=== PATIENT | male | born 1980 | race Caucasian/White ===

== ENCOUNTER 2024-09-11 08:27 | Emergency (ER) | payer BC, SELFPAY ==
[2024-09-11 08:28] VITALS: BP 165/95
--- NOTE | 2024-09-11 08:46 | ED.GENMED ---
History of Present Illness
General
Chief Complaint: Abdominal Pain
Time Seen by Provider: 09/11/24 08:32
History of Present Illness
History of Present Illness:
Patient is a 43-year-old male with no reported chronic medical problems here today for evaluation of approximately 3 days of left lateral side pain. At times, pain radiates along the left side of his abdomen. No back pain. Pain is mild described
as a 3 out of 10 in severity. Last week, he had mild fever associated with cough/congestion but this lasted 1 to 2 days and has since resolved. No fevers currently. No vomiting or diarrhea. No prior abdominal surgeries. No other acute symptoms.
Past History
Past History
ED Past Medical History: Psychiatric (Anxiety. Takes Celexa)
Social History
Tobacco: Non-smoker
Personal: Single
Employment: Employed
Review of Systems
Review of Systems
All Other Systems: ROS reviewed and negative except as documented in HPI and ROS
Phy Exam
Physical Exam
Physical Exam:
GENERAL: Alert , in no apparent distress
NECK: Supple
ABDOMEN: Soft, without focal tenderness, no r/g, no cvat
NEUROLOGICAL: Alert and oriented, no focal neuro deficits
SKIN: Warm and dry, skin intact.
MUSCULOSKELETAL: No edema, well perfused.
PSYCH: Normal and appropriate interaction.
Course
Orders/Labs/Results
Orders:
Orders
09/11/24 08:48
CT Abd/pelvis W Iv Cont Urgent
Comment:
Reason For Exam: left side pain
09/11/24 09:12
Comprehensive Metabolic Panel Urgent
09/11/24 09:13
Complete Blood Count/With Diff Urgent
09/11/24 10:37
Urinalysis Reflex To Culture Urgent
Date Specimen was Collected: 09/11/24
Time Specimen was Collected: 10:17
Urine Culture Urgent
MURRAY Source: U
Specimen Description:
Date Specimen was Collected: 09/11/24
Time Specimen was Collected: 10:17
09/11/24 10:47
0.9% Sodium Chloride 1000 ml [Nss] 1,000 ml IV BOLUS
09/11/24 11:44
CefTRIAXone [Rocephin] 1,000 mg IV NOW STA
09/11/24 11:47
Add On - Microbiology Stat
Tests Added?: urine culture
09/11/24 12:01
Sterile Water [Sterile Water For Injection] 10 ml .ROUTE .STK-MED ONE
Abnormal Lab Results
09/11/24 09/11/24
09:12 09:13
RBC 4.46 L 10^6/uL
(4.70-6.10)
MCH 31.4 H pg
(27.0-31.0)
Abs Immat Gran (auto) 0.1 H 10^3/uL
(0-0.05)
Absolute Monos (auto) 0.7 H 10^3/uL
(0.1-0.6)
Immature Gran % 0.6 H %
(0-0.5)
Glucose 107 H mg/dl
(70-99)
Total Protein 6.2 L g/dl
(6.3-8.2)
09/11/24 09:13
09/11/24 09:12
Vital Signs
Initial and Last Documented VS:
Initial Vital Signs
Temp Pulse Resp BP Pulse Ox
98.1 F 69 16 165/95 99
09/11/24 08:28 09/11/24 08:28 09/11/24 08:28 09/11/24 08:28 09/11/24 08:28
Last Documented Vital Signs
Temp Pulse Resp BP Pulse Ox
98.1 F 69 16 165/95 99
09/11/24 08:28 09/11/24 08:28 09/11/24 08:28 09/11/24 08:28 09/11/24 08:28
MDM/Problems Addressed
Differential Diagnosis Includes:
Patient is a 43-year-old male with no reported chronic medical problems here today for evaluation of approximately 3 days of left lateral side pain. Overall, patient well-appearing. Vitals remarkable for an elevated blood pressure. Physical
examination described above. Given symptoms/findings, will begin with screening labs, urinalysis, and a CT scan of the abdomen and pelvis with IV contrast.
09/11/2024 13:32: CT scan reveals findings that are highly suspicious for focal pyelonephritis of the left kidney. No discrete abscess. There is also a small right middle lobe pulmonary nodule. CT kidney findings less likely differential include
renal lymphoma or infarct. Case was discussed with the radiologist, Dr. London, who feels an ultrasound would not provide additional information at this time and feels patient can follow-up as an outpatient with urology. Urinalysis was obtained
which is negative. Screening labs grossly negative for infection. Will send urine for culture. Will treat empirically for pyelonephritis with ceftriaxone x 1 IV as well as discharge with p.o. cefpodoxime. Recommend supportive measures and close
follow-up with urology. Patient also made aware of the incidental pulmonary nodule and recommended follow-up with primary care doctor for repeat imaging as the patient does smoke tobacco. All questions answered. Stable for discharge.
*Critical Care Note
Total Time (30-74mins, 75-104mins- exclusive of procedures): Not Applicable
ED Attending Note
-
Portions of this chart may have been created with voice recognition software.� Occasional wrong word or��sound alike� substitutions may have occurred due to the inherent limitations of voice recognition software.
Discharge Plan
Departure
Patient Disposition: Home (Routine Discharge)
Date of Disposition: 09/11/24
Time of Disposition: 13:34
Patient with high blood pressure during this ER visit?: Yes
Condition: Good
Covid-19: Not Applicable
Discharge Problem:
Pyelonephritis of left kidney, Acute left flank pain, Incidental lung nodule
Instructions: Urinary tract infections in adults
Prescriptions:
New
cefpodoxime 200 mg tablet
200 mg PO Q12H 10 Days Qty: 20 0RF
Referrals:
Amor Wang DO [Family Provider] -
Hector Swift MD [Active] - Follow up in 1 week
Activity Restrictions/Additional Instructions:
Your CAT scan reveals evidence of a possible kidney infection. Begin the oral antibiotics as directed. Follow-up with urology within 7 to 10 days for close reevaluation. Return for any new, worsening, or concerning symptoms.
Interventions
Interventions:
*Risk Screen - Suicide Last Done: 09/11/24 08:30
*General Assessment Last Done: 09/11/24 09:15
*Neglect/Abuse Screening Last Done: 09/11/24 08:30
*ED COVID-19 Vaccine History Last Done: 09/11/24 09:15
DL-Nvokwz-Ifxrbvaubh Assessment Last Done: 09/11/24 09:20
Discharge Date and Time
Print Language: CHILEAN
[2024-09-11 09:18] VITALS: BMI 30.8
[2024-09-11 09:31] LABS: % Basophils 0.2 % (0-2); % Eosinophils 5.6 % (0-6); % Immature Granulocytes 0.6 % (0-0.5); % Lymphocytes 24.9 % (20.5-51.1); % Monocytes 8.5 % (1.7-9.3); % Neutrophils 60.2 % (42.2-75.2); Absolute Eosinophils 0.5 10^3/uL (0-0.7); Absolute Immature Granulocytes 0.1 10^3/uL (0-0.05); Absolute Lymphocytes 2.1 10^3/uL (1.2-3.4); Absolute Monocytes 0.7 10^3/uL (0.1-0.6); Absolute Neutrophils 5.1 10^3/uL (1.4-6.5); Hematocrit 40.8 % (39.0-52.0); Mean Corp Hgb Conc. 34.3 g/dL (33.0-37.0); Mean Corpuscular Hgb 31.4 pg (27.0-31.0); Mean Corpuscular Volume 91.5 fL (80.0-94.0); Nucleated Red Blood Cells % 0 % (-); Platelet Count 238 10^3/uL (130-400); Red Blood Cell Count 4.46 10^6/uL (4.70-6.10); Red Cell Dist. Width 12.9 % (11.5-14.5); White Blood Cell Count 8.4 10^3/uL (4.8-10.8)
[2024-09-11 09:47] LABS: ALT (SGPT) 27 U/L (0-50); AST (SGOT) 26 U/L (17-59); Albumin 3.7 g/dl (3.5-5.0); Alkaline Phosphatase 82 U/L (38-126); Blood Urea Nitrogen 18 mg/dl (9-20); Carbon Dioxide 30 mmol/L (22-30); Chloride 103 mmol/L (98-107); Estimated Creatinine Clearance > 125 ml/min; Glucose 107 mg/dl (70-99); Sodium 138 mmol/L (135-145); Total Bilirubin 0.6 mg/dl (0.2-1.3); Total Protein 6.2 g/dl (6.3-8.2); eGFR > 60.00
[2024-09-11] MEDS: NSS 1000 IV (11:03)
[2024-09-11 11:10] LABS: Urine Albumin Negative (Neg - Trace); Urine Bilirubin Negative (Negative); Urine Character Clear (Clear); Urine Color Yellow; Urine Glucose Negative (Negative); Urine Ketone Negative (Negative); Urine Leukocyte Negative (Negative); Urine Nitrite Negative (Negative); Urine Occult Blood Negative (Negative); Urine Urobilinogen Negative (Neg - 1+)
[2024-09-11] MEDS: ROCEPHIN 1000 MG IV (12:03)
== END 2024-09-11 14:23 | disposition home or self-care (01) ==
LOC: EMR 08:27
PROVIDERS: Physician Assistant; EMERGENCY PHYSICIAN Emergency Medicine; FAMILY PHYSICIAN Family Medicine
DX: N12 Tubulo-interstitial nephritis, not specified as acute or chronic (principal); R91.1 Solitary pulmonary nodule; R03.0 Elevated blood-pressure reading, without diagnosis of hypertension
CPT/HCPCS: 99285; 96374; 96361; 74177; 80053; 81003; 85025; 87086; Q9967

== ENCOUNTER 2024-09-23 09:53 | Emergency (ER) | payer BC, SELFPAY ==
[2024-09-23 09:54] VITALS: BP 144/86
--- NOTE | 2024-09-23 10:26 | ED.GENMED ---
History of Present Illness
General
Chief Complaint: Head Injury
Source: patient and spouse
Exam Limitations: none
Time Seen by Provider: 09/23/24 10:22
History of Present Illness
History of Present Illness:
Patient pulled back by his dog. Hit the back of his head. Brief LOC. Sat up and then passed out briefly again. Complaining of headache and posterior neck pain. No nausea or vomiting no photophobia no numbness tingling or weakness or other
neurologic symptoms. No bleeding.
Past History
Past History
ED Past Medical History: Psychiatric (Anxiety. Takes Celexa)
Social History
Tobacco: Non-smoker
Personal: Single
Employment: Employed
Review of Systems
Review of Systems
All Other Systems: Not applicable
Neurological: Denies dizzy, weakness or numbness
Phy Exam
Physical Exam
Physical Exam:
TRAUMA EXAM:
VITAL SIGNS: Vital signs reviewed, cooperative
DISTRESS: No active disease
EYES: Pupils reactive, no orbital trauma
NOSE: No deformity or epistaxis
FACE AND SCALP: No scalp or facial trauma, external canals no blood
NECK: Supple mild paracervical tenderness. No midline
BACK: Back nontender
RESPIRATORY: No distress, breath sounds normal, no tender chest wall
CARDIAC: No murmur, pulses equal and strong
NEUROLOGICAL: Alert, oriented, no motor deficits. Cnc Programmer normal. Interosseous normal. Extension flexion of the wrist normal. Gait normal.
PSYCH: Mood affect normal
Course
Orders/Labs/Results
Orders:
Orders
09/23/24 10:26
CT Cervical Spine W/o Iv Contr Urgent
Comment:
Reason For Exam: Posterior head trauma/neck pain
CT Head W/o Iv Contrast Urgent
Comment:
Reason For Exam: Posterior head trauma/neck pain
09/23/24 10:36
Ondansetron Orally Disint [Zofran Odt (Orally Disintegrating)] 4 mg PO NOW STA
Vital Signs
Initial and Last Documented VS:
Initial Vital Signs
Temp Pulse Resp BP Pulse Ox
97.9 F 64 16 144/86 100
09/23/24 09:54 09/23/24 09:54 09/23/24 09:54 09/23/24 09:54 09/23/24 09:54
Last Documented Vital Signs
Temp Pulse Resp BP Pulse Ox
97.9 F 64 16 144/86 100
09/23/24 09:54 09/23/24 09:54 09/23/24 09:54 09/23/24 09:54 09/23/24 09:54
MDM/Problems Addressed
Differential Diagnosis Includes:
Relatively low suspicion for significant head injury or cervical issue however based on mechanism and loss of consciousness x [address] of the head and cervical spine.
*Radiology
Radiology exam reviewed: radiology read reviewed (Negative)
*Pulse Oximetry
Patient hypoxic: no
*Critical Care Note
Total Time (30-74mins, 75-104mins- exclusive of procedures): Not Applicable
Update Note
Update Note:
Medically stable for discharge. Mild concussion and cervical strain
ED Attending Note
-
Portions of this chart may have been created with voice recognition software.� Occasional wrong word or��sound alike� substitutions may have occurred due to the inherent limitations of voice recognition software.
Discharge Plan
Departure
Patient Disposition: Home (Routine Discharge)
Date of Disposition: 09/23/24
Time of Disposition: 11:36
Patient with high blood pressure during this ER visit?: Yes
Discharge Problem:
Head injury/concussion, Cervical strain
Instructions: Concussion, Adult (DC), Head Injury in Adults (DC), Cervical Sprain ED, BLOOD PRESSURE
Prescriptions:
New
ondansetron 4 mg tablet,disintegrating
4 mg PO TIDPRN PRN (Reason: nausea/vomiting) Qty: 14 0RF
No Action
cefpodoxime 200 mg tablet
200 mg PO Q12H 10 Days Qty: 20 0RF
Activity Restrictions/Additional Instructions:
Tylenol for pain or headache. Zofran for nausea. The prescription was sent in
Recheck with persistent or worsening headache neurologic symptoms worsening nausea or any other concerning symptoms
Interventions
Interventions:
*Risk Screen - Suicide Last Done: 09/23/24 09:56
*General Assessment Last Done: 09/23/24 10:25
*Neglect/Abuse Screening Last Done: 09/23/24 09:56
ED- Fall Risk Assessment Last Done: 09/23/24 10:25
*ED COVID-19 Vaccine History Last Done: 09/23/24 10:25
ED- Neurological Assessment Last Done: 09/23/24 10:25
ED-Skin Assessment Last Done: 09/23/24 10:25
Discharge Date and Time
Print Language: MALAGASY
[2024-09-23] MEDS: ZOFRAN ODT (ORALLY DISINTEGRATING) 4 MG PO (10:50)
[2024-09-23 10:53] VITALS: BMI 29.9
[2024-09-23 11:48] VITALS: BP 131/78
== END 2024-09-23 11:48 | disposition home or self-care (01) ==
LOC: EMR 09:53
PROVIDERS: EMERGENCY PHYSICIAN Emergency Medicine; FAMILY PHYSICIAN Family Medicine
DX: S06.0X1A Concussion with loss of consciousness of 30 minutes or less, initial encounter (principal); S16.1XXA Strain of muscle, fascia and tendon at neck level, initial encounter; W22.8XXA Striking against or struck by other objects, initial encounter
CPT/HCPCS: 99284; 70450; 72125

== ENCOUNTER → 2024-10-03 06:47 | Outpatient (REF) | payer BC, SELFPAY ==
[2024-10-03 07:28] LABS: % Basophils 0.7 % (0-2); % Eosinophils 12.1 % (0-6); % Immature Granulocytes 0.2 % (0-0.5); % Lymphocytes 33.8 % (20.5-51.1); % Monocytes 8.7 % (1.7-9.3); % Neutrophils 44.5 % (42.2-75.2); Absolute Eosinophils 0.7 10^3/uL (0-0.7); Absolute Lymphocytes 2.1 10^3/uL (1.2-3.4); Absolute Monocytes 0.5 10^3/uL (0.1-0.6); Absolute Neutrophils 2.7 10^3/uL (1.4-6.5); Hematocrit 43.2 % (39.0-52.0); Hemoglobin 14.8 g/dL (13.0-18.0); Mean Corp Hgb Conc. 34.3 g/dL (33.0-37.0); Mean Corpuscular Volume 90.4 fL (80.0-94.0); Mean Platelet Volume 8.9 fL (7.4-10.4); Nucleated Red Blood Cells % 0 % (-); Platelet Count 226 10^3/uL (130-400); Red Blood Cell Count 4.78 10^6/uL (4.70-6.10); Red Cell Dist. Width 12.9 % (11.5-14.5); White Blood Cell Count 6.1 10^3/uL (4.8-10.8)
[2024-10-03 07:53] LABS: ALT (SGPT) 18 U/L (0-50); AST (SGOT) 22 U/L (17-59); Albumin 4.7 g/dl (3.5-5.0); Alkaline Phosphatase 82 U/L (38-126); Blood Urea Nitrogen 19 mg/dl (9-20); Calcium 9.8 mg/dl (8.4-10.2); Carbon Dioxide 28 mmol/L (22-30); Chloride 103 mmol/L (98-107); Glucose 94 mg/dl (70-99); HDL Cholesterol 53 mg/dl; Iron 142 ug/dl (49-181); LDL Cholesterol, Calculated 93 mg/dl; Potassium 4.3 mmol/L (3.5-5.1); Sodium 139 mmol/L (135-145); Total Cholesterol 163 mg/dl (50-199); Total Protein 7.1 g/dl (6.3-8.2); Triglyceride 85 mg/dl (10-149); Very Low Density Lipoprotein 17 mg/dl (0-30); eGFR > 60.00
[2024-10-03 08:03] LABS: Percent Saturation 45 % (20-50); Total Iron Binding Capacity 313 ug/dl (261-462)
[2024-10-03 08:58] LABS: Folate > 20.0 ng/ml (2.76-20); Vitamin B12 743 pg/ml (239-931)
[2024-10-03 10:51] LABS: Glycohemoglobin (HgbA1c) 5.5 % (4.0-5.6)
[2024-10-05 01:52] LABS: ANA, IgG Reflex to HEp-2 None Detected (None Detected)
== END ==
LOC: RAD 06:47
PROVIDERS: ATTENDING PHYSICIAN Family Medicine
DX: R91.1 Solitary pulmonary nodule (principal); L50.9 Urticaria, unspecified; R53.82 Chronic fatigue, unspecified
CPT/HCPCS: 36415; 71260; 80053; 80061; 82607; 82728; 82746; 83036; 83540; 83550; 84443; 85025; 86038; Q9967